=== PATIENT | female | born 1980 | race Asian ===

== ENCOUNTER 2019-07-29 09:56 | Emergency (ER) | payer MEDICAID, OTHER ==
[~2019-07-29] VITALS: Ht 165.1 cm; Wt 72.6 kg
[2019-07-29 10:19] VITALS: BP 110/70
[2019-07-29] MEDS ORDERED: ACETAMINOPHEN 325 MG TAB PO ONE (11:15)
== END 2019-07-29 11:22 | disposition home or self-care (01) ==
LOC: EDBD 09:56 → ER 10:19
DX: S09.8XXA Other specified injuries of head, initial encounter (principal); F41.9 Anxiety disorder, unspecified; V43.52XA Car driver injured in collision with other type car in traffic accident, initial encounter; Y93.89 Activity, other specified; Y92.488 Other paved roadways as the place of occurrence of the external cause; Y99.8 Other external cause status
CPT/HCPCS: 70450